=== PATIENT | female | born 1955 | race Caucasian/White ===

== ENCOUNTER 2017-07-03 20:29 | Emergency (ER) | payer BC ==
[2017-07-03 20:53] VITALS: BP 143/61
--- NOTE | 2017-07-03 20:57 | ERNOTE ---
Lower Extremity HPI - Narrative Date of Service: 07/03/17 - General Lower Extremities Pain: knee: left Time Seen by Provider: 07/03/17 20:35 Source: patient Exam Limitations: no limitations - Immun/Allergies/Home Medications Immunizations: IMMUNIZATION HX Immunizations Up to Date Yes History of Influenza Vaccine Yes Hx Pneumococcal Vaccination No Allergies/Adverse Reactions: Allergies Allergy/AdvReac Type Severity Reaction Status Date / Time No Known Allergies Allergy Verified 07/03/17 20:53 Home Medications: HOME MEDICATIONS Enalapril Maleate 10 mg PO BID 05/22/14 [Last Taken 07/17/16] Levothyroxine Sodium [Tirosint] 137 mcg PO DAILY 05/22/14 [Last Taken 07/17/16] Multivitamins [Multivitamin Sandie] 1 cap PO DAILY 04/16/16 [Last Taken 07/17/16 ] Omeprazole [Prilosec] 20 mg PO BID #80 cap 07/15/16 [Last Taken 07/17/16] Aspirin [Aspirin Enteric Coated] 325 mg PO DAILY #30 tablet. 07/21/16 [Last Taken Unknown] Atorvastatin Calcium 80 mg PO HS #30 tablet 07/21/16 [Last Taken Unknown] Clopidogrel Bisulfate [Plavix] 75 mg PO DAILY 07/03/17 [Last Taken Unknown] - History of Present Illness Narrative: patient states that she has been up walking all day today and now has developed knee pain with some below the knee pain on the left side. patient states that she has a history of bilateral knee pain and injections to both her knees in may of this year. Date (Duration): 07/03/17 Occurred: just prior to arrival Method of Injury: Reports: no apparent injury Loss of Consciousness: Reports: no loss of consciousness Modifying Factors - (Improves): Reports: immobilization Modifying Factors - (Worsens): Reports: movement Associated Symptoms: Reports: unable to bear weight. Denies: snapping, weakness , sensory loss, bowel/bladder problems Other Injuries: Reports: none Subsequent Symptoms: Denies: sensory loss, numbness, motor loss, bowel/bladder problem Prior Treament: Reports: similar symptoms before - Patient's Past Medical History Patient History - Medical: Anemia, Hypothyroidism, Other Patient History - Cardiac/Respiratory: Hypertension, Hyperlipidemia Patient History - Cancer: No Hx of Cancer Patient History - Surgical Procedures: Colonoscopy, , Tubal Ligation, Other Patient History - Other: None - Family History Father Family History - Medical: , No pertinent hx Family History - Cardiac/Respiratory: Cardiac Arrest, Other Mother Family History - Medical: , Renal Failure, Other Family History - Cardiac/Respiratory: Hypertension Brother Family History - Medical: , Diabetes Type 2 Family History - Cardiac/Respiratory: Coronary Heart Disease, Other - Social History Living Situations: alone Abuse History: No History of abuse Psych History: No pertinent hx Alcohol Use: rarely Drug Use: none - Immunizations Immunizations Up to Date: Yes Hx Pneumococcal Vaccination: No History of Influenza Vaccine: Yes Physical Exam - Physical Exam General Appearance: Present: wd/wn, alert, no apparent distress Head Exam: Present: normal inspection, no evidence of injury Eye Exam: Normal inspection: bilateral, PERRL: bilateral, EOMI: bilateral Ears, Nose, Throat: Present: normal ENT inspection, normal pharynx Neck: Present: normal inspection, nontender, full range of motion Respiratory: Present: no respiratory distress, normal breath sounds, no accessory muscle use, chest nontender, lungs clear Cardiovascular/Chest: Present: regular rate, rhythm, no murmur, normal peripheral pulses Peripheral Pulses: N=norm/S=strong/W=weak/B=bound/A=absent: Dorsalis-pedis (R): Normal, Dorsalis-pedis (L): Normal Gastrointestinal/Abdominal: Present: normal bowel sounds, nontender, nondistended, soft, no organomegaly. Absent: tenderness, distended Extremity Exam: Present: normal except -, pedal edema - left knee, bony tenderness Neurological Exam: Present: alert, oriented, normal mood/affect, no motor/ sensory deficits Skin Exam: Present: normal color, warm/dry Lymphatic Exam: Present: no adenopathy ED Progress - Vital Signs Patient's Vital Signs:: I have reviewed the patient's vital signs. - X-Ray X-Ray #1 X-Ray: knee Interpretation: Reviewed by me X-ray Comments: arthritis, no acute fracture. - Progress/Reassessment Chief Complaint: Lower Extremity Pain/ Injury Progress:: Unchanged Plan - Plan Plan: patient will follow up with ortho on Tuesday. Departure Clinical Impression: Knee pain Qualifiers: Chronicity: acute Laterality: left Qualified Code(s): M25.562 - Pain in left knee - Departure Disposition: Home Follow Up Needed Condition: Stable Instructions: Knee Pain, RICE for Routine Care of Injuries, [id number] Additional Instructions: continue any previous home medications, you may take over the counter pain medications as directed. follow up with ortho on Tuesday. Referrals: Erum Rosas MD [Primary Care Provider] -
--- OUTSIDE RECORDS SUMMARY | 2017-07-03 21:42 | XMS REPORT | Clinical Summary ---
:1955 Author Organization [facility] Address Unavailable [place] [id number] Care Team Providers Name Role Phone Unavailable Primary Care Provider Unavailable Source Comments This disclosure is being made pursuant to the [employer] program and maynot contain all information available regarding this patient.[facility] Allergies No Known Allergies Current Medications Be aware that medications may not be up to date as of this document. Alwaysverify current medications with the patient. Prescription Sig. Disp. Refills Start Date End Date Status vitamin D, Ergocalciferol, TAKE 1 12 capsule 0 03/31/2015 Active 72952 UNITS capsule CAPSULE BY MOUTH ONCE A WEEK enalapril (VASOTEC) 20 MG TAKE 1 TABLET 180 tablet 1 11/17/2015 Active tabletIndications:[facility] BY MOUTH l hypertension TWICE DAILY levothyroxine (SYNTHROID, TAKE 1 TABLET 30 tablet 0 12/21/2015 Active LEVOTHROID) 137 MCG BY MOUTH tabletIndications:Hypothyr EVERY DAY oidism hydrochlorothiazide TAKE 1 TABLET 30 tablet 5 06/14/2016 Active (HYDRODIURIL) 25 MG BY MOUTH tabletIndications:[facility] EVERY DAY l hypertension Active Problems Problem Noted Date Vitamin D deficiency 03/31/2015 Hypercholesteremia 02/27/2015 HTN (hypertension) 02/27/2015 Hypothyroidism 02/27/2015 Osteoarthritis 02/27/2015 Overview: 07/11/14 Synvisc injection x3 by trudy in [place] BMI 40.0-44.9, adult (HCC) 02/27/2015 Family History Medical History Relation Name Comments Diabetes Brother Heart attack Brother Heart attack Brother Leukemia Brother Heart failure Father Hypertension Mother Kidney disease Mother Cancer Paternal Grandmother Relation Name Status Comments Brother Alive Brother Brother Father Mother Paternal Grandmother Social History Tobacco Use Types Packs/Day Years Used Date Former Smoker 1.5 15 Quit: 02/27/2005 Smokeless Tobacco: Never Used Alcohol Use Drinks/Week oz/Week Comments No Sex Assigned at Date Recorded Not on file Last Filed Vital Signs Vital Sign Reading Time Taken Blood Pressure 100/68 07/14/2015 9:06 AM CDT Pulse 74 07/14/2015 9:06 AM CDT Temperature 36.2 C (97.2 F) 03/31/2015 12:50 PM CDT Respiratory Rate - - Oxygen Saturation 98% 07/14/2015 9:06 AM CDT Inhaled Oxygen Concentration - - Weight 112 kg (247 lb) 07/14/2015 9:06 AM CDT Height 165.1 cm (5' 5") 07/14/2015 9:06 AM CDT Body Mass Index 41.1 07/14/2015 9:06 AM CDT Plan of Treatment Health Maintenance Due Date Last Done Comments Hepatitis C Screening 1972 Tetanus/Pertussis (1 - Tdap) 1973 Colonoscopy 2004 Zoster Vaccine 60+ 2014 Well Adult Visit 07/14/2016 07/14/2015 INFLUENZA IMMUNIZATION (#1) 2016 Mammogram 04/07/2017 04/07/2015, 03/26/2015, 10/21/2013 Pap Smear 03/31/2018 03/31/2015, 10/21/2013 Goals Patient Goal Type Goal Recent Progress Patient-Stated? Author Diet Reduce portion No Patricia Rios size RN Results Not on filefrom Last 3 Months
== END 2017-07-03 21:57 | disposition home or self-care (01) ==
LOC: ER 20:29
DX: M25.562 Pain in left knee (principal); D64.9 Anemia, unspecified; E03.9 Hypothyroidism, unspecified; I10 Essential (primary) hypertension; E78.5 Hyperlipidemia, unspecified

== ENCOUNTER 2020-07-20 10:37 | Observation (INO) ==
--- NOTE | 2020-07-20 11:16 | ERNOTE ---
Dyspnea - General Presenting Symptoms: other - Cough, fever for 5 days. Time Seen by Provider: 07/20/20 10:57 Source: patient Exam Limitations: no limitations - Immun/Allergies/Home Medications Immunizations: IMMUNIZATION HX Immunizations Up to Date Yes History of Influenza Vaccine Yes Hx Pneumococcal Vaccination No Allergies/Adverse Reactions: Allergies No Known Allergies Allergy (Verified 06/13/20 14:23) Home Medications: HOME MEDICATIONS naproxen sodium 220 mg capsule 220 mg PO BID PRN 08/21/18 [Last Taken Unknown] enalapril maleate 20 mg tablet 10 mg PO BID #60 tab 11/22/18 [Last Taken Unknown] atorvastatin 80 mg tablet 80 mg PO HS #30 tab 12/22/18 [Last Taken Unknown] clopidogrel 75 mg tablet 75 mg PO DAILY #30 tab 12/22/18 [Last Taken Unknown] calcium carbonate 600 mg calcium (1,500 mg) tablet 600 mg PO DAILY tab 02/19/19 [Last Taken Unknown] aspirin 325 mg tablet,delayed release 325 mg PO DAILY tab 06/13/20 [Last Taken Unknown] cholecalciferol (vitamin D3) 250 mcg (10,000 unit) capsule 10,000 unit PO 2XW cap 06/13/20 [Last Taken Unknown] levothyroxine 112 mcg tablet 112 mcg PO DAILY #90 tab 06/13/20 [Last Taken Unknown] selenium 200 mcg tablet 200 mcg PO DAILY 06/13/20 [Last Taken Unknown] - History of Present Illness Narrative: 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 She has had a cough, fever on and off, some shortness of breath with exertion for about 5-6 days. It seems to be getting a little better. She has not had COVID testing. No chest pain. She had some problems with her right knee giving out recently, saw Ortho and the chi ropractor, and that is doing better. No calf pain or edema. Review of Systems - Review of Systems Constitutional: Present: recent illness, fever, chills EYE: Present: no symptoms reported ENT: Present: no symptoms reported Respiratory: Present: shortness of breath, cough Cardiology: Present: no symptoms reported. Absent: chest pain Gastrointestinal/Abdominal: Present: no symptoms reported. Absent: nausea, vomiting, diarrhea Genitourinary: Present: no symptoms reported Musculoskeletal: Present: no symptoms reported Skin: Present: no symptoms reported Neurological: Present: no symptoms reported Endocrine: Present: no symptoms reported Hematologic/Lymphatic: Present: no symptoms reported Psych: Present: no symptoms reported All Other Systems: All systems neg except as marked Medical History (Last Reviewed 07/20/20 @ 11:15 by Candelaria Vasquez MD) Anemia Ankle swelling left Cerebellar stroke Onset Date: Unknown Essential hypertension Onset Date: ~2015 Hypercholesterolemia Onset Date: Unknown Hypertension Onset Date: Unknown Hypothyroidism (acquired) Onset Date: Unknown Hypovitaminosis D Onset Date: ~2015 Knee pain Onset Date: ~2013 Osteoarthritis Onset Date: Unknown Restless leg syndrome Onset Date: Unknown Stroke Onset Date: Unknown Thyroid disorder Onset Date: Unknown Urinary tract infection 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 Mccarthy History of section Onset Date: ~1979 History of colonoscopy Onset Date: ~2015 Tinguely-negative. Recheck 10 yrs. History of tubal ligation Onset Date: ~1979 Family History: Family History (Last Reviewed 07/20/20 @ 11:15 by Candelaria Vasquez MD) Brother Diabetes Brother , 55-heart related Leukemia Brother , 65-heart disease CHF (congestive heart failure) Heart disease Father , 65-heart disease No problems noted. Grandmother , paternal Intestinal Cancer Mother , 89-kidney failure Hypertension Social History: (Last Reviewed 07/20/20 @ 11:15 by Candelaria Vasquez MD) Social History: Marital status: household members: none current occupational status: employed current occupation: teacher's associate Highest education level completed: high school graduate Service: No Tobacco: Smoking Status: Former smoker Alcohol: alcohol intake: current alcohol intake frequency: holiday/special occasion Substance Use: substance use type: does not use Dietary Habits: caffeine: Yes caffeine comment: occasional Type: coffee Exercise: frequency: does not exercise Personal Safety: do you feel safe at home: Yes victim of physical abuse: No victim of emotional abuse: No Physical Exam - Physical Exam General Appearance: Present: wd/wn, alert, no apparent distress Head Exam: Present: normal inspection, no evidence of injury Eye Exam: Normal inspection: bilateral, PERRL: bilateral Ears, Nose, Throat: Present: normal ENT inspection, normal pharynx Neck: Present: normal inspection, nontender Respiratory: Present: no respiratory distress, other - scattered rhonchi Cardiovascular/Chest: Present: regular rate, rhythm, no murmur, normal peripheral pulses Peripheral Pulses: N=norm/S=strong/W=weak/B=bound/A=absent: Dorsalis-pedis (R): Normal, Dorsalis-pedis (L): Normal Gastrointestinal/Abdominal: Present: normal bowel sounds, nontender, nondistended, soft Back Exam: Present: normal inspection, no CVA tenderness Extremity Exam: Present: normal inspection, non-tender, no edema Neurological Exam: Present: alert, oriented, normal mood/affect, no motor/sensory deficits Skin Exam: Present: normal color, warm/dry Progress - Results and Orders Patient's Lab Results:: I have reviewed the patient's lab results. - Vital Signs Patient's Vital Signs:: I have reviewed the patient's vital signs. Vital Signs: Vital Signs 07/20/20 10:50 Temperature 36.9 C Pulse Rate 92 Respiratory Rate 30 H Blood Pressure 117/63 O2 Sat by Pulse Oximetry 90 L - EKG EKG #1 EKG: NSR EKG read: Interp. by me EKG Comments: Poor R wave progression, unchanged from previous 07/16/16. No acute ST-T changes. - X-Ray X-Ray #1 X-Ray: chest Interpretation: Interp. by me - haziness RLL, edge of diaphram blurry. - Progress/Reassessment Chief Complaint: Dyspnea Progress:: Re-examined - Patient remains tachypneic at approx 30 breaths/minute, oxygen sat running about 90% on room air. Will recommend admit for observation, oxygen per NC. Departure Clinical Impression: Pneumonia Qualifiers: Pneumonia type: due to unspecified organism Laterality: right Lung location: lower lobe of lung Qualified Code(s): J18.9 - Pneumonia, unspecified organism HTN (hypertension) Qualifiers: Hypertension type: essential hypertension Qualified Code(s): I10 - Essential (primary) hypertension - Departure Disposition: Short Term Hospital Inpatient Condition: Stable
[2020-07-20 12:00] LABS: Hemoglobin 11.5 gm/dL (12.5-16.0); Mean Cell Volume 90.2 fl (78-100); Mean Corpuscular Hemoglobin 30.5 pg (27-31); Mean Corpuscular Hgb Conc 33.8 g/dl (32-36); Mean Platelet Volume 10.1 fl (8-12.5); Neutrophil # 6.1 K/mm3 (1.3-6.0); Neutrophil % 84.3 % (42-75.0); Platelet Count 198 K/mm3 (150-450); Red Blood Count 3.77 M/mm3 (4.2-5.4); Red Cell Distribution Width 15.9 % (11.5-14.0); White Blood Count 7.2 K/mm3 (4.0-10.5)
[2020-07-20 12:12] LABS: Albumin * 2.3 gm/dl (3.4-5.0); Anion Gap 13.4 mmol/L (6.8-13.8); BUN/Creatinine Ratio 13.2 (9.0-21.6); Bilirubin, Total 0.8 mg/dL (0.0-1.1); Ca. Corrected For Albumin 9.9 mg/dL (8.4-10.2); Calcium * 8.9 mg/dL (7.9-10.9); Carbon Dioxide 25.2 mmol/L (24-32.6); Potassium 3.6 mmol/L (3.4-4.6); Total Protein 6.9 gm/dL (6.2-8.2)
[2020-07-20] MEDS ORDERED: cefTRIAXone SODIUM 1,000 MG/100 ML BAG IV ONE (13:27)
--- NOTE | 2020-07-20 19:01 | HP ---
Chief Complaint - Chief Complaint Date of Service: 07/20/20 Time of Service: 19:01 Chief Complaint: Fever, cough, shortness of breath History of Present Illness: Stefany guerrero is a 64-year-old white female patient of Dr. Gutierrez with past medical history significant for hypothyroidism, osteoarthritis, hypertension, hyperlipidemia, CVA who was admitted on 07/20/2020 because of cough, shortness of breath and fever. 5 days prior to admission the patient started having cough associated with fever and chills. She also had mild myalgias and arthralgias. She started having cough productive of whitish phlegm. She tried home remedies with no success and so she went to our emergency room. In the emergency room her white blood cell count was normal at 7.2, hemoglobin of 11.5, MCV of 90.2, neutrophils of 84.3%, electrolytes within normal limits, creatinine of 1.14 with a GFR of 51, random blood sugar 124, normal lactic acid, liver function test within normal limits except for slightly elevated AST, albumin of 2.3. Her chest x-ray showed right mid and lower lung field infiltrates compatible with pneumonia. Her Covid Test was negative. She was then given IV Rocephin in the emergency room and admitted for further treatment. 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 Mccarthy History of section Onset Date: ~1979 1976, 1979 History of colonoscopy Onset Date: ~2015 Tinguely-negative. Recheck 10 yrs. History of tubal ligation Onset Date: ~1979 Family History: Family History (Last Reviewed 07/20/20 @ 17:25 by Veronika Catalan RN) Brother Diabetes Brother , 55-heart related Leukemia Brother , 65-heart disease Heart disease CHF (congestive heart failure) Father , 65-heart disease No problems noted. Grandmother , paternal Cancer Intestinal Mother , 89-kidney failure Hypertension Social History: (Last Reviewed 07/20/20 @ 17:25 by Veronika Catalan RN) Social History: Marital status: household members: none current occupational status: employed current occupation: teacher's associate Highest education level completed: high school graduate Service: No Tobacco: Smoking Status: Former smoker Alcohol: alcohol intake: current alcohol intake frequency: holiday/special occasion Substance Use: substance use type: does not use Dietary Habits: caffeine: Yes caffeine comment: occasional Type: coffee Exercise: frequency: does not exercise Personal Safety: do you feel safe at home: Yes victim of physical abuse: No victim of emotional abuse: No Review Of Systems (GEN) - Review of Systems Generalized/Overall Review: Present: Chills, Fever. Absent: Weakness EENTM: Absent: Blurred Vision, Throat Swelling Respiratory: Present: Cough, Shortness of Breath. Absent: Orthopnea, Wheezing Cardiac: Absent: Chest Pain, Edema, Palpitations Abdominal: Absent: Nausea, Vomiting, Abdominal Pain Genitourinary: Absent: Urgency, Frequency Musculoskeletal: Present: Joint Pain Neurological: Absent: Headache Skin: Absent: Lesions, Rash Endocrine: Absent: Intolerance to Cold, Intolerance to Heat Misc: All systems neg except as marked Immunizations: IMMUNIZATION HX Immunizations Up to Date Yes History of Influenza Vaccine Yes Hx Pneumococcal Vaccination No Allergies/Adverse Reactions: Allergies Allergy/AdvReac Type Severity Reaction Status Date / Time No Known Allergies Allergy Verified 06/13/20 14:23 Home Medications: HOME MEDICATIONS naproxen sodium 220 mg capsule 220 mg PO BID PRN 08/21/18 [Last Taken Unknown] enalapril maleate 20 mg tablet 10 mg PO BID #60 tab 11/22/18 [Last Taken Unknown] atorvastatin 80 mg tablet 80 mg PO HS #30 tab 12/22/18 [Last Taken Unknown] clopidogrel 75 mg tablet 75 mg PO DAILY #30 tab 12/22/18 [Last Taken Unknown] calcium carbonate 600 mg calcium (1,500 mg) tablet 600 mg PO DAILY tab 04/01/19 [Last Taken Unknown] aspirin 325 mg tablet,delayed release 325 mg PO DAILY tab 06/13/20 [Last Taken Unknown] cholecalciferol (vitamin D3) 250 mcg (10,000 unit) capsule 10,000 unit PO 2XW cap 06/13/20 [Last Taken Unknown] levothyroxine 112 mcg tablet 112 mcg PO DAILY #90 tab 06/13/20 [Last Taken Unknown] selenium 200 mcg tablet 200 mcg PO DAILY 06/13/20 [Last Taken Unknown] Exam - Exam Vital Signs: Vital Signs - Last Taken Temp 36.7 C 07/20/20 17:08 Pulse 96 07/20/20 17:08 Resp 36 H 07/20/20 17:08 BP 111/72 07/20/20 17:08 Pulse Ox 97 07/20/20 17:08 Constitutional: Present: Alert, Oriented x3, Cooperative, Morbidly obese ENT Exam: Present: hearing grossly normal Eye Exam: bilateral eye: normal inspection, PERRL, EOMI Neck: Present: supple. Absent: lymphadenopathy (R), lymphadenopathy (L) Respiratory: Present: decreased breath sounds, crackles, No wheezing - Right lung base Cardiovascular/Chest: Present: regular rate, rhythm, no JVD, no murmur Abdomen: Present: Normal bowel sounds, soft, nontender, obese Extremity: Present: no pedal edema, no calf tenderness Diagnostic Studies: Abnormal Lab Results 07/20/20 07/20/20 Range/Units 11:45 11:45 RBC 3.77 L (4.2-5.4) M/mm3 Hgb 11.5 L (12.5-16.0) gm/dL Hct 34.0 L (37.0-47.0) % RDW 15.9 H (11.5-14.0) % Immature Gran % (Auto) 1.00 H (0.001-0.429) % Immature Gran # (Auto) 0.07 H (0.000-0.0310) K/mm3 Neutrophils % 84.3 H (42-75.0) % Lymphocytes % 8.3 L (20-51) % Neutrophils # 6.1 H (1.3-6.0) K/mm3 Lymphocytes # 0.60 L (1.5-3.5) k/mm3 Est GFR (Non-Af Amer) 51 L (60-130) mL/min Random Glucose 124 H (70-110) mg/dL AST 64 H (0-48) U/L Albumin 2.3 L (3.4-5.0) gm/dl Laboratory Results WBC 7.2 K/mm3 (4.0-10.5) 07/20/20 11:45 RBC 3.77 M/mm3 (4.2-5.4) L 07/20/20 11:45 Hgb 11.5 gm/dL (12.5-16.0) L 07/20/20 11:45 Hct 34.0 % (37.0-47.0) L 07/20/20 11:45 MCV 90.2 fl (78-100) 07/20/20 11:45 MCH 30.5 pg (27-31) 07/20/20 11:45 MCHC 33.8 g/dl (32-36) 07/20/20 11:45 RDW 15.9 % (11.5-14.0) H 07/20/20 11:45 Plt Count 198 K/mm3 (150-450) 07/20/20 11:45 MPV 10.1 fl (8-12.5) 07/20/20 11:45 Immature Gran % (Auto) 1.00 % (0.001-0.429) H 07/20/20 11:45 Immature Gran # (Auto) 0.07 K/mm3 (0.000-0.0310) H 07/20/20 11:45 Neutrophils % 84.3 % (42-75.0) H 07/20/20 11:45 Lymphocytes % 8.3 % (20-51) L 07/20/20 11:45 Monocytes % 6.0 % (0.0-9) 07/20/20 11:45 Eosinophils % 0.1 % (0.0-3.0) 07/20/20 11:45 Basophils % 0.3 % (0.0-1.0) 07/20/20 11:45 Nucleated RBC % 0.0 k/mm3 (0-1) 07/20/20 11:45 Neutrophils # 6.1 K/mm3 (1.3-6.0) H 07/20/20 11:45 Lymphocytes # 0.60 k/mm3 (1.5-3.5) L 07/20/20 11:45 Monocytes # 0.4 k/mm3 (0.0-1.0) 07/20/20 11:45 Eosinophils # 0.0 k/mm3 (0.0-0.7) 07/20/20 11:45 Absolute Basophils 0.0 k/mm3 (0.0-0.1) 07/20/20 11:45 Sodium 133 mmol/L (132-142) 07/20/20 11:45 Plasma Sodium 133 mmol/L (130-142) 07/20/20 11:45 Potassium 3.6 mmol/L (3.4-4.6) 07/20/20 11:45 Chloride 98 mmol/L (97-106) 07/20/20 11:45 Carbon Dioxide 25.2 mmol/L (24-32.6) 07/20/20 11:45 Anion Gap 13.4 mmol/L (6.8-13.8) 07/20/20 11:45 BUN 15 mg/dL (3-23) 07/20/20 11:45 Creatinine 1.14 mg/dL (0.4-1.4) 07/20/20 11:45 Est GFR (Non-Af Amer) 51 mL/min (60-130) L 07/20/20 11:45 BUN/Creatinine Ratio 13.2 (9.0-21.6) 07/20/20 11:45 Random Glucose 124 mg/dL (70-110) H 07/20/20 11:45 Lactic Acid, Venous 1.0 mmol/L (0.4-2.0) 07/20/20 11:45 Calcium 8.9 mg/dL (7.9-10.9) 07/20/20 11:45 Calcium Adj for Albumin 9.9 mg/dL (8.4-10.2) 07/20/20 11:45 Total Bilirubin 0.8 mg/dL (0.0-1.1) 07/20/20 11:45 AST 64 U/L (0-48) H 07/20/20 11:45 ALT 41 U/L (19-67) 07/20/20 11:45 Alkaline Phosphatase 167 U/L (50-170) 07/20/20 11:45 Troponin I Less than 0.017 ng/mL (0.00-0.10) 07/20/20 11:45 Total Protein 6.9 gm/dL (6.2-8.2) 07/20/20 11:45 Albumin 2.3 gm/dl (3.4-5.0) L 07/20/20 11:45 SARS-CoV-2 (PCR) Not detected (ND) 07/20/20 14:30 Assessment/Plan - Narrative Narrative: Stefany was admitted for community-acquired pneumonia, multilobar involving right middle lobe and right lower lobe. Although her white blood cell count is normal she does have a left shift. Her COVID test was negative. She desaturated (89- 92% at RA )and was tachypneic (30-34)at the emergency room and was admitted for IV antibiotics. She does have a history of smoking in the past 1 pack/day for about 20 years. She did stop in 2000. She said she was never diagnosed with COPD in the past. Her slightly elevated AST is likely due to either her statin medication or a fatty liver and unlikely due to an acute transaminitis from Covid. We will continue with her IV Rocephin and will add azithromycin. We will continue with her home medications. Her primary care physician will take over her care in the morning. - Assessment/Plan (1) Pneumonia Assessment: Multilobar right middle lobe and right lower lobe,. Problem: Acute Qualifiers: Pneumonia type: due to unspecified organism Laterality: right Lung location: lower lobe of lung Qualified Code(s): J18.9 - Pneumonia, unspecified organism (2) Hypothyroidism (acquired) Assessment: Likely sequela of her history of Nadine's thyroiditis Problem: Chronic (3) HTN (hypertension) Problem: Chronic Qualifiers: Hypertension type: essential hypertension Qualified Code(s): I10 - Essential (primary) hypertension (4) GERD (gastroesophageal reflux disease) Problem: Chronic Qualifiers: Esophagitis presence: esophagitis presence not specified Qualified Code(s): K21.9 - Gastro-esophageal reflux disease without esophagitis (5) History of CVA (cerebrovascular accident) Problem: Chronic (6) Hyperlipidemia Problem: Chronic (7) Chronic renal failure Assessment: GFR of 51 Problem: Chronic Qualifiers: Chronic kidney disease stage: stage 3 (moderate) Qualified Code(s): N18.3 - Chronic kidney disease, stage 3 (moderate)
[2020-07-20] MEDS ORDERED: AZITHROMYCIN 500 MG in DEXTROSE 5 % IN WATER 250 ML IV ONE ×4 (19:34→19:45)
[2020-07-20] MEDS ORDERED: ACETAMINOPHEN 325 MG TABLET PO PRN (19:36)
[2020-07-20] MEDS ORDERED: ENALAPRIL MALEATE 20 MG TABLET PO SCH (21:00)
[2020-07-20] MEDS ORDERED: ROSUVASTATIN CALCIUM 20 MG TABLET PO SCH (21:00)
[2020-07-21] MEDS ORDERED: LEVOTHYROXINE SODIUM 112 MCG TABLET PO SCH (07:00)
[2020-07-21] MEDS ORDERED: AZITHROMYCIN 250 MG TABLET PO SCH (09:00)
[2020-07-21] MEDS ORDERED: CALCIUM CARBONATE 500 MG TAB.CHEW PO SCH (09:00)
[2020-07-21] MEDS ORDERED: CLOPIDOGREL BISULFATE 75 MG TABLET PO SCH (09:00)
[2020-07-21] MEDS ORDERED: ASPIRIN 325 MG TABLET.DR PO SCH (09:00)
[2020-07-21] MEDS ORDERED: ENALAPRIL MALEATE 5 MG TABLET PO SCH (09:00)
[2020-07-21 11:06] LABS: Hematocrit 35.4 % (37.0-47.0); Hemoglobin 11.7 gm/dL (12.5-16.0); Mean Cell Volume 91.5 fl (78-100); Mean Corpuscular Hemoglobin 30.2 pg (27-31); Mean Corpuscular Hgb Conc 33.1 g/dl (32-36); Mean Platelet Volume 10.7 fl (8-12.5); Neutrophil # 4.5 K/mm3 (1.3-6.0); Neutrophil % 79.7 % (42-75.0); Platelet Count 210 K/mm3 (150-450); Red Blood Count 3.87 M/mm3 (4.2-5.4); Red Cell Distribution Width 16.4 % (11.5-14.0); White Blood Count 5.7 K/mm3 (4.0-10.5)
[2020-07-21 11:27] LABS: Albumin * 2.2 gm/dl (3.4-5.0); Anion Gap 10.7 mmol/L (6.8-13.8); BUN/Creatinine Ratio 16.2 (9.0-21.6); Bilirubin, Total 0.6 mg/dL (0.0-1.1); Ca. Corrected For Albumin 9.8 mg/dL (8.4-10.2); Calcium * 8.7 mg/dL (7.9-10.9); Carbon Dioxide 29.1 mmol/L (24-32.6); Potassium 3.8 mmol/L (3.4-4.6); Total Protein 6.1 gm/dL (6.2-8.2)
--- NOTE | 2020-07-21 12:12 | DS ---
(1) Pneumonia Problem: Acute Qualifiers: Pneumonia type: due to unspecified organism Laterality: right Lung location: lower lobe of lung Qualified Code(s): J18.9 - Pneumonia, unspecified organism (2) Hyperlipidemia Problem: Chronic (3) Nadine's disease Problem: Inactive (4) Bilateral primary osteoarthritis of knee Problem: Chronic (5) HTN (hypertension) Problem: Chronic Qualifiers: Hypertension type: essential hypertension Qualified Code(s): I10 - Essential (primary) hypertension Date of Discharge:: 07/21/20 Hospital Course: 64-year-old female with past medical history of hypertension, Nadine's, hypercholesterolemia, rhinitis, stroke presents with fever, cough and shortness of breath. She was found to have a right lower middle lobe pneumonia. Blood work was stable. Vitals are stable except for one episode of fever the night of admission. She was started on antibiotics and oxygen supplementation. She stabilized and was able to be tapered off oxygen. She is tolerating her diet. She ambulated with no difficulty. She is stable to be discharged home today and follow-up with me in the office in 1 to 2 weeks. I will send her home on azithromycin and cefpodoxime. Procedures Performed: none Results and Findings: Lab Pending Results 07/20/20 11:45: WBC 7.2, RBC 3.77 L, Hgb 11.5 L, Hct 34.0 L, MCV 90.2, MCH 30.5, MCHC 33.8, RDW 15.9 H, Plt Count 198, MPV 10.1, Immature Gran % (Auto) 1.00 H, Immature Gran # (Auto) 0.07 H, Neutrophils % 84.3 H, Lymphocytes % 8.3 L, Monocytes % 6.0, Eosinophils % 0.1, Basophils % 0.3, Nucleated RBC % 0.0, Neutrophils # 6.1 H, Lymphocytes # 0.60 L, Monocytes # 0.4, Eosinophils # 0.0, Absolute Basophils 0.0 07/20/20 11:45: Sodium 133, Plasma Sodium 133, Potassium 3.6, Chloride 98, Carbon Dioxide 25.2, Anion Gap 13.4, BUN 15, Creatinine 1.14, Est GFR (Non-Af Amer) 51 L, BUN/Creatinine Ratio 13.2, Random Glucose 124 H, Calcium 8.9, Calcium Adj for Albumin 9.9, Total Bilirubin 0.8, AST 64 H, ALT 41, Alkaline Phosphatase 167, Total Protein 6.9, Albumin 2.3 L 07/20/20 11:45: Troponin I Less than 0.017 07/20/20 11:45: Lactic Acid, Venous 1.0 07/20/20 14:30: SARS-CoV-2 (PCR) Not detected 07/21/20 10:55: WBC 5.7 D, RBC 3.87 L, Hgb 11.7 L, Hct 35.4 L, MCV 91.5, MCH 30.2, MCHC 33.1, RDW 16.4 H, Plt Count 210, MPV 10.7, Immature Gran % (Auto) 1.10 H, Immature Gran # (Auto) 0.06 H, Neutrophils % 79.7 H, Lymphocytes % 12.5 L, Monocytes % 5.8, Eosinophils % 0.5, Basophils % 0.4, Nucleated RBC % 0.0, Neutrophils # 4.5, Lymphocytes # 0.71 L, Monocytes # 0.3, Eosinophils # 0.0, Absolute Basophils 0.0 07/21/20 10:55: Sodium 134, Plasma Sodium 135, Potassium 3.8, Chloride 98, Carbon Dioxide 29.1, Anion Gap 10.7, BUN 19, Creatinine 1.17, Est GFR (Non-Af Amer) 49 L, BUN/Creatinine Ratio 16.2, Random Glucose 172 H D, Calcium 8.7, Calcium Adj for Albumin 9.8, Total Bilirubin 0.6, AST 110 H, ALT 63, Alkaline Phosphatase 234 H, Total Protein 6.1 L, Albumin 2.2 L Discharge Location: Home Disposition: Home self-care Condition: Stable Discharge Activity: Activity as tolerated Discharge Diet: General/regular food Referrals: Maryma Alonso MD [Primary Care Provider] - Prescriptions (Any new or edited meds): Cefpodoxime Proxetil 200 mg PO BID #12 tab Transmission Status: Received by [facility] #[id number] guaiFENesin [Mucinex] 600 mg PO BID #12 tablet.sa Transmission Status: Received by [facility] #[id number] Azithromycin [Zithromax] 250 mg PO DAILY #3 tab Transmission Status: Received by [facility] #[id number] Complete Home Medications List: Complete Home Medication List: naproxen sodium 220 mg capsule 220 mg PO BID PRN 08/21/18 enalapril maleate 20 mg tablet 10 mg PO BID #60 tab 11/22/18 atorvastatin 80 mg tablet 80 mg PO HS #30 tab 12/22/18 clopidogrel 75 mg tablet 75 mg PO DAILY #30 tab 12/22/18 calcium carbonate 600 mg calcium (1,500 mg) tablet 600 mg PO DAILY tab 02/19/19 aspirin 325 mg tablet,delayed release 325 mg PO DAILY tab 06/13/20 cholecalciferol (vitamin D3) 250 mcg (10,000 unit) capsule 10,000 unit PO 2XW cap 06/13/20 levothyroxine 112 mcg tablet 112 mcg PO DAILY #90 tab 06/13/20 selenium 200 mcg tablet 200 mcg PO DAILY 06/13/20 Azithromycin [Zithromax] 250 mg PO DAILY #3 tab 07/21/20 Cefpodoxime Proxetil 200 mg PO BID #12 tab 07/21/20 guaiFENesin [Mucinex] 600 mg PO BID #12 tablet.sa 07/21/20 Forms: Patient Portal Registration
[2020-07-21 15:40] VITALS: BP 115/65
[2020-07-23] MEDS ORDERED: CHOLECALCIFEROL 5,000 UNIT TABLET PO SCH (09:00)
== END 2020-07-21 14:50 | disposition home or self-care (01) ==
LOC: ER 10:37 → MS 10:37
PROVIDERS: ADMIT Internal Medicine; ATTEND Internal Medicine
DX: E06.3 Autoimmune thyroiditis; Z86.73 Personal history of transient ischemic attack (TIA), and cerebral infarction without residual deficits; N18.3 Chronic kidney disease, stage 3 (moderate); J18.9 Pneumonia, unspecified organism; E03.9 Hypothyroidism, unspecified; E78.5 Hyperlipidemia, unspecified; R06.02 Shortness of breath; I12.9 Hypertensive chronic kidney disease with stage 1 through stage 4 chronic kidney disease, or unspecified chronic kidney disease; K21.9 Gastro-esophageal reflux disease without esophagitis; Z87.891 Personal history of nicotine dependence; M19.90 Unspecified osteoarthritis, unspecified site